=== PATIENT | male | born 1970 | race Caucasian/White ===

== ENCOUNTER 2021-02-03 10:05 | Emergency (ER) | payer OTHER ==
[~2021-02-03 10:05] MED LIST: FOLTX TABLET1 EAC1 PO; LOVAZA1 GM PO; VOLTAREN **OUT50 MG PO
[2021-02-03 11:40] LABS: BASOPHIL 0.8 % (0-2); HCT 46.5 % (42.0-52.0); HGB 15.5 g/dl (13.2-18.0); LYMPHOCYTE 19.2 % (15-48); MCH 31.1 pg (25.0-31.0); MCHC 33.3 g/dL (32.0-36.0); MCV 93.2 fL (78.0-100.0); MONOCYTE 7.9 % (0-12); MPV 9.4 fL (6.0-9.5); NRBC 0; PLT 270 K/uL (150-400); RBC 4.99 M/uL (4.70-6.00); RDW 13.1 % (11.5-14.0); WBC 7.8 K/uL (4.0-10.5)
[2021-02-03 11:58] LABS: ALBUMIN 3.2 g/dL (3.4-5.0); BILIRUBIN - TOTAL 0.2 mg/dL (0.2-1.0); BUN/CREAT RATIO (CALC) 24.2 RATIO; C-REACTIVE PROTEIN 0.5 mg/dL (<=0.90); CREATININE 0.91 mg/dL (0.67-1.17); GLOBULIN (CALCULATION) 3.6 g/dL; POTASSIUM 4.7 mmol/L (3.5-5.1); TOTAL PROTEIN 6.8 g/dL (6.4-8.2)
== END 2021-02-03 11:30 | disposition left against medical advice (07) ==
LOC: FER 10:05
PROVIDERS: Emergency Medicine
DX: G89.18 Other acute postprocedural pain (principal); M25.522 Pain in left elbow; Z88.5 Allergy status to narcotic agent; Z98.890 Other specified postprocedural states
CPT/HCPCS: 36415; 73080; 80053; 83605; 84145; 85025; 86140